=== PATIENT | female | born 1995 | race African-American/Black ===

== ENCOUNTER 2021-04-17 09:39 | Emergency (ER) | payer MEDICAID, OTHER ==
[~2021-04-17] VITALS: Ht 152.4 cm; Wt 57.0 kg
[2021-04-17] MEDS ORDERED: SODIUM CHLORIDE 0.9% 1,000 ML IV ONE (11:15)
[2021-04-17] MEDS ORDERED: ACETAMINOPHEN 325MG TABLET PO PRN (11:15)
[2021-04-17 11:30] LABS: CLARITY URINE CLOUDY (CLEAR); COLOR URINE DARK YELLOW (YELLOW); KETONES URINE 4+ (NEGATIVE); LEUKOCYTE ESTERASE URINE TRACE (NEGATIVE); NITRITE URINE NEGATIVE (NEGATIVE); OCCULT BLOOD URINE NEGATIVE (NEGATIVE); PH URINE 6.5 (4.5-8.0); PROTEIN URINE 1+ (NEGATIVE); SPECIFIC GRAVITY URINE 1.031 (1.005-1.030)
[2021-04-17] MEDS ORDERED: PYRIDOXINE HCL 50MG TABLET PO ONE (11:30)
[2021-04-17] MEDS ORDERED: METOCLOPRAMIDE HCL 10MG/2ML VIAL IV ONE (11:30)
[2021-04-17] MEDS ORDERED: DIPHENHYDRAMINE 50MG/ML VIAL IV NR (11:45)
[2021-04-17 12:07] LABS: CHLORIDE 105 mEq/L (98-107)
[2021-04-17 12:08] LABS: BASOPHILS % 0.6 % (0.0-2.0); EOSINOPHILS % 0.4 % (0.0-5.0); HEMATOCRIT. 36.7 % (36.0-48.0); HEMOGLOBIN. 12.2 g/dL (12.0-16.0); MEAN CORPUSCULAR HEMOGLOBIN 30.9 pg (28.0-32.0); MEAN CORPUSCULAR VOLUME 92.9 fL (81.0-99.0); MEAN PLATELET VOLUME 8.1 fl (7.4-10.4); MONOCYTES % 8.7 % (2.0-8.0); NEUTROPHILS % 65.3 % (40.0-76.0); PLATELET 196 x1000/uL (130-400); RED BLOOD CELL COUNT 3.95 mill/uL (4.2-5.4); RED CELL DISTRIBUTION WIDTH 12.1 % (11.6-14.6)
[2021-04-17 12:44] VITALS: BP 120/80
[2021-04-17] MEDS ORDERED: DOXY1TAB3 MT (13:07)
[2021-04-17] MEDS ORDERED: CEPH500C2 MT (13:08)
[2021-04-17] MEDS ORDERED: ACET-2708 MT (13:11)
[2021-04-17 13:12] LABS: B-HCG QUANTITATIVE 59655 mIU/mL (<3)
== END 2021-04-17 13:45 | disposition home or self-care (01) ==
LOC: ER 09:39
DX: O21.0 Mild hyperemesis gravidarum (principal); O23.41 Unspecified infection of urinary tract in pregnancy, first trimester; N39.0 Urinary tract infection, site not specified; Z3A.01 Less than 8 weeks gestation of pregnancy
CPT/HCPCS: 36415; 76801; 76817; 80053; 81003; 81025; 84702; 85025; 86850; 86900; 86901; 99284; J7030; Z7610

== ENCOUNTER 2021-05-26 11:16 | Emergency (ER) | payer MEDICAID ==
[~2021-05-26] VITALS: Ht 152.4 cm; Wt 50.0 kg
[~2021-05-26 11:16] MED LIST: ACET-2708 MT; CEPH500C2 MT; DOXY1TAB3 MT
[2021-05-26 14:38] LABS: CLARITY URINE CLOUDY (CLEAR); COLOR URINE DARK YELLOW (YELLOW); KETONES URINE TRACE (NEGATIVE); LEUKOCYTE ESTERASE URINE TRACE (NEGATIVE); NITRITE URINE NEGATIVE (NEGATIVE); OCCULT BLOOD URINE NEGATIVE (NEGATIVE); PH URINE 5.5 (4.5-8.0); PROTEIN URINE NEGATIVE (NEGATIVE); SPECIFIC GRAVITY URINE 1.027 (1.005-1.030); UROBILINOGEN URINE 0.2 E.U./dL (0.2-1.0)
[2021-05-26 14:59] VITALS: BP 135/79
== END 2021-05-26 14:50 | disposition home or self-care (01) ==
LOC: ER 11:16
DX: Z98.890 Other specified postprocedural states (principal); Z20.822 Contact with and (suspected) exposure to COVID-19
CPT/HCPCS: 81003; 87426; 99283

== ENCOUNTER 2021-07-10 10:34 | Emergency (ER) | payer MEDICAID ==
[~2021-07-10] VITALS: Ht 152.4 cm; Wt 55.0 kg
[2021-07-10 11:41] LABS: BASOPHILS % 0.3 % (0.0-2.0); EOSINOPHILS % 2.7 % (0.0-5.0); HEMATOCRIT. 32.2 % (36.0-48.0); HEMOGLOBIN. 11.3 g/dL (12.0-16.0); MEAN CORPUSCULAR HEMOGLOBIN 31.9 pg (28.0-32.0); MEAN PLATELET VOLUME 7.1 fl (7.4-10.4); MONOCYTES % 8.7 % (2.0-8.0); NEUTROPHILS % 69.3 % (40.0-76.0); PLATELET 229 x1000/uL (130-400); RED BLOOD CELL COUNT 3.54 mill/uL (4.2-5.4); RED CELL DISTRIBUTION WIDTH 12.9 % (11.6-14.6)
[2021-07-10 11:51] LABS: CHLORIDE 104 mEq/L (98-107)
[2021-07-10 12:21] LABS: B-HCG QUANTITATIVE 14573 mIU/mL (<3)
[2021-07-10 13:30] VITALS: BP 123/71
[2021-07-10 13:36] LABS: CLARITY URINE CLEAR (CLEAR); COLOR URINE YELLOW (YELLOW); KETONES URINE NEGATIVE (NEGATIVE); LEUKOCYTE ESTERASE URINE 2+ (NEGATIVE); NITRITE URINE NEGATIVE (NEGATIVE); OCCULT BLOOD URINE NEGATIVE (NEGATIVE); PROTEIN URINE NEGATIVE (NEGATIVE)
== END 2021-07-10 13:30 | disposition home or self-care (01) ==
LOC: ER 10:34
DX: O26.892 Other specified pregnancy related conditions, second trimester (principal); R10.30 Lower abdominal pain, unspecified; Z3A.19 19 weeks gestation of pregnancy
CPT/HCPCS: 36415; 76805; 80053; 81003; 81025; 84702; 85025; 99284

== ENCOUNTER 2021-10-26 02:08 | Observation (INO) | payer MEDICAID ==
[~2021-10-26] VITALS: Ht 152.4 cm; Wt 68.9 kg
[2021-10-26] MEDS ORDERED: URSODIOL 300MG CAPSULE PO SCH (04:00)
[2021-10-26 04:10] LABS: BASOPHILS % 0.3 % (0.0-2.0); HEMATOCRIT. 33.9 % (36.0-48.0); HEMOGLOBIN. 11.4 g/dL (12.0-16.0); LYMPHOCYTES % 18.7 % (20.0-50.0); MEAN CORPUSCULAR HEMOGLOBIN 30.3 pg (28.0-32.0); MEAN CORPUSCULAR VOLUME 89.7 fL (81.0-99.0); MEAN PLATELET VOLUME 7.6 fl (7.4-10.4); MONOCYTES % 11.2 % (2.0-8.0); NEUTROPHILS % 67.8 % (40.0-76.0); PLATELET 224 x1000/uL (130-400); RED BLOOD CELL COUNT 3.77 mill/uL (4.2-5.4); RED CELL DISTRIBUTION WIDTH 12.8 % (11.6-14.6)
[2021-11-19] MEDS ORDERED: IBUP-2030 MT (05:08)
== END 2021-10-26 06:25 | disposition home or self-care (01) ==
LOC: 8 EST LDRP 02:08
PROVIDERS: ADMIT Obstetrics & Gynecology; ATTEND Obstetrics & Gynecology
DX: O26.893 Other specified pregnancy related conditions, third trimester (principal); R10.13 Epigastric pain; L29.9 Pruritus, unspecified; O62.9 Abnormality of forces of labor, unspecified; Z3A.34 34 weeks gestation of pregnancy
CPT/HCPCS: 36415; 59025; 76805; 76818; 82239; 85025; G0378; 99281

== ENCOUNTER 2021-10-30 09:08 | Observation (INO) | payer MEDICAID ==
[~2021-10-30] VITALS: Ht 152.4 cm; Wt 68.9 kg
[2021-10-30] MEDS ORDERED: PNV1TABL76 PO (09:43)
[2021-10-30] MEDS ORDERED: FERR325T6 PO (09:44)
== END 2021-10-30 12:00 | disposition home or self-care (01) ==
LOC: 8 EST LDRP 09:08
PROVIDERS: ADMIT Obstetrics & Gynecology; ATTEND Obstetrics & Gynecology
DX: O26.893 Other specified pregnancy related conditions, third trimester (principal); L29.9 Pruritus, unspecified; Z3A.34 34 weeks gestation of pregnancy
CPT/HCPCS: 59025; 76815; 76818; G0378; 99281

== ENCOUNTER 2021-11-04 09:06 | Observation (INO) | payer MEDICAID ==
[~2021-11-04] VITALS: Ht 152.4 cm; Wt 68.0 kg
[~2021-11-04 09:06] MED LIST changes: -ACET-2708 MT; -CEPH500C2 MT; -DOXY1TAB3 MT; +FERR325T6 PO; +PNV1TABL76 PO
[2021-11-04] MEDS ORDERED: URSO250T3 PO (10:38)
[2021-11-19] MEDS ORDERED: IBUP-2030 MT (05:08)
== END 2021-11-04 13:00 | disposition home or self-care (01) ==
LOC: 8 EST A/PP 09:06 → 8 EST LDRP 10:31
PROVIDERS: ADMIT Obstetrics & Gynecology; ATTEND Obstetrics & Gynecology
DX: O41.03X0 Oligohydramnios, third trimester, not applicable or unspecified (principal); O36.8130 Decreased fetal movements, third trimester, not applicable or unspecified; O36.8930 Maternal care for other specified fetal problems, third trimester, not applicable or unspecified; Z3A.35 35 weeks gestation of pregnancy
CPT/HCPCS: 59025; 76815; 76818; G0378

== ENCOUNTER 2021-11-06 09:22 | Observation (INO) | payer MEDICAID ==
[~2021-11-06] VITALS: Ht 152.4 cm; Wt 69.4 kg
[~2021-11-06 09:22] MED LIST changes: +URSO250T3 PO
== END 2021-11-06 11:00 | disposition home or self-care (01) ==
LOC: 8 EST LDRP 09:22
PROVIDERS: ADMIT Obstetrics & Gynecology; ATTEND Obstetrics & Gynecology
DX: O26.893 Other specified pregnancy related conditions, third trimester (principal); L29.9 Pruritus, unspecified; Z3A.35 35 weeks gestation of pregnancy
CPT/HCPCS: 59025; 76815; 76818; G0378; 99281; G0379

== ENCOUNTER 2021-11-08 09:25 | Observation (INO) | payer MEDICAID ==
[~2021-11-08] VITALS: Ht 152.4 cm; Wt 69.4 kg
== END 2021-11-08 11:10 | disposition home or self-care (01) ==
LOC: 8 EST LDRP 09:25
PROVIDERS: ADMIT Obstetrics & Gynecology; ATTEND Obstetrics & Gynecology
DX: O36.8330 Maternal care for abnormalities of the fetal heart rate or rhythm, third trimester, not applicable or unspecified (principal); O41.8X30 Other specified disorders of amniotic fluid and membranes, third trimester, not applicable or unspecified; Z3A.36 36 weeks gestation of pregnancy
CPT/HCPCS: 59025; 76815; 76818; G0378; 99281

== ENCOUNTER 2021-11-12 09:57 | Observation (INO) | payer MEDICAID ==
[~2021-11-12] VITALS: Ht 152.4 cm; Wt 69.4 kg
== END 2021-11-12 13:20 | disposition home or self-care (01) ==
LOC: 8 EST A/PP 09:57
PROVIDERS: ADMIT Obstetrics & Gynecology; ATTEND Obstetrics & Gynecology
DX: O36.8330 Maternal care for abnormalities of the fetal heart rate or rhythm, third trimester, not applicable or unspecified (principal); Z3A.36 36 weeks gestation of pregnancy
CPT/HCPCS: 59025; 76815; 76818; G0378

== ENCOUNTER 2022-11-17 10:34 | Emergency (ER) | payer MEDICAID ==
[~2022-11-17] VITALS: Ht 152.4 cm; Wt 58.1 kg
[~2022-11-17 10:34] MED LIST changes: +IBUP-2030 MT; -URSO250T3 PO
[2022-11-17 10:49] VITALS: BP 126/96; TEMP 98.4; O2SAT 100
[2022-11-17 10:50] VITALS: PULSE 83; RESP 18
== END 2022-11-17 11:00 | disposition home or self-care (01) ==
LOC: ER 10:34
DX: Z00.00 Encounter for general adult medical examination without abnormal findings (principal)
CPT/HCPCS: 99281

== ENCOUNTER 2023-09-24 11:47 | Emergency (ER) | payer SELFPAY ==
[~2023-09-24] VITALS: Ht 152.4 cm; Wt 55.0 kg
[2023-09-24 11:59] VITALS: BP 124/78; PULSE 90; RESP 16; TEMP 98.6; O2SAT 99
[2023-09-24] MEDS ORDERED: LIDO1ADH7 TP (14:31)
[2023-09-24] MEDS ORDERED: CYCL5TAB MT (14:31)
[2023-09-24] MEDS ORDERED: IBUP-2028 MT (14:31)
== END 2023-09-24 14:46 | disposition home or self-care (01) ==
LOC: ER 11:47
DX: M54.9 Dorsalgia, unspecified (principal); M79.10 Myalgia, unspecified site; Z98.890 Other specified postprocedural states
CPT/HCPCS: 99281